=== PATIENT | female | born 1940 | race Caucasian/White ===

== ENCOUNTER → 2017-11-03 | Outpatient (REF) | payer MEDICARE ==
[2017-11-03 18:57] LABS: FOLATE > 24.0 NG/ML; VITAMIN B12 LEVEL 297 PG/ML
[2017-11-03 19:14] LABS: FERRITIN 16 NG/ML (8-252); PERCENT SATURATION 5.9 % (13.2-45.0); TOTAL IRON BINDING CAPACITY 561 UG/DL (250-450)
== END ==
LOC: M LAB REF 17:16
PROVIDERS: ATTEND Internal Medicine Nephrology
DX: D64.9 Anemia, unspecified (principal)

== ENCOUNTER → 2020-10-20 | Outpatient (REF) | payer MEDICARE | LOC: M LAB REF 16:57 | PROVIDERS: ATTEND Internal Medicine Nephrology | DX: N39.0 Urinary tract infection, site not specified (principal) ==

== ENCOUNTER → 2021-07-03 | Outpatient (REF) | payer MEDICARE | LOC: M LAB REF 16:46 | PROVIDERS: ATTEND Internal Medicine Nephrology | DX: N18.4 Chronic kidney disease, stage 4 (severe) (principal) ==

== ENCOUNTER → 2021-10-07 | Outpatient (REF) | payer MEDICARE | LOC: M LAB REF 16:51 | PROVIDERS: ATTEND Nurse Practitioner Family | DX: N18.32 Chronic kidney disease, stage 3b (principal) ==

== ENCOUNTER → 2022-02-05 | Outpatient (REF) | payer MEDICARE | LOC: M LAB REF 16:46 | PROVIDERS: ATTEND Nurse Practitioner Family | DX: N39.0 Urinary tract infection, site not specified (principal) ==

== ENCOUNTER → 2022-02-12 | Outpatient (REF) | payer MEDICARE | LOC: M LAB REF 16:59 | PROVIDERS: ATTEND Nurse Practitioner Family | DX: N39.0 Urinary tract infection, site not specified (principal) ==

== ENCOUNTER → 2022-09-20 | Outpatient (REF) | payer MEDICARE ==
[2022-09-20 18:58] LABS: CREATININE, URINE 67.2 MG/DL; MALB URINE SIEMENS 29.4 MG/L; MAU/CREAT RATIO 43.7 MCG/MG (0.0-30.0)
== END ==
LOC: M LAB REF 17:26
PROVIDERS: ATTEND Nurse Practitioner Family
DX: E11.65 Type 2 diabetes mellitus with hyperglycemia (principal)

== ENCOUNTER → 2024-03-22 | Outpatient (REF) | payer MEDICARE ==
[2024-03-22 18:24] LABS: TOTAL PROTEIN,RANDOM URINE 20.2 MG/DL (0.0-14.0)
[2024-03-22 18:28] LABS: CREATININE,RANDOM URINE 78.2 MG/DL
== END ==
LOC: M LAB REF 16:52
PROVIDERS: ATTEND Internal Medicine Nephrology
DX: N18.4 Chronic kidney disease, stage 4 (severe) (principal)

== ENCOUNTER → 2025-01-10 | Outpatient (REF) | payer MEDICARE ==
[2025-01-10 19:24] LABS: TOTAL PROTEIN,RANDOM URINE < 6.0 MG/DL (0.0-14.0)
== END ==
LOC: M LAB REF 17:02
PROVIDERS: ATTEND Internal Medicine Nephrology
DX: N18.4 Chronic kidney disease, stage 4 (severe) (principal)

== ENCOUNTER → 2025-09-30 | Outpatient (CLI) | payer MEDICARE, MEDICAID ==
[~2025-09-30] VITALS: Ht 160 cm; Wt 89.1 kg
[~2025-09-30] MED LIST: ACET-683 PO; ACET32TAB PO; ATEN25TA PO; COLA100C5 PO; DARB100SYR IV; FAMO1TAB11 PO; FAMO20TA PO; FEBU40TA6 PO; FURO80TA2 PO; HYDR-161 PO; LACT20EL PO; LEVO75TA4 PO; METO25TA PO; MIDAZOLAM INJ 2 MG/2 ML VIAL IV PRN; MIDO5TA PO; OCUVTAB4 PO; PANT40TA29 PO; QUET1TAB17 PO; SITA50TAB PO; SODI650T PO; THERTAB52 PO
[2025-09-30 13:55] VITALS: TEMP 98.4
[2025-09-30] MEDS: ISOVUE-300 61% 100 ML VIAL IV ONE (14:00)
[2025-09-30] MEDS: diphenhydrAMINE 50 MG/ML VIAL IV ONE (14:26)
[2025-09-30] MEDS: ceFAZolin SODIUM 2 GM in DEXTROSE 5% (D5W) ADV/MINI-BAG 50 ML IV ONE (14:27)
[2025-09-30] MEDS: LIDOCAINE 1% MDV 20 ML VIAL SC SCH (15:12)
[2025-09-30] MEDS: NS (Normal Saline) 0.9% 1,000 ML IV SCH (15:13)
[2025-09-30] MEDS: HEPARIN 1,000 UNITS/ML 10 ML VIAL (FOR RADIOLOGY & DIALYSIS ONLY) IV PRN (15:13)
[2025-09-30 15:25] VITALS: BP 137/65; O2SAT 99
== END ==
LOC: M IRPRO 13:41
PROVIDERS: ATTEND Internal Medicine Nephrology
DX: N18.6 End stage renal disease (principal)
CPT/HCPCS: 36581; J0688; J1200